=== PATIENT | female | born 1995 | race Caucasian/White ===

== ENCOUNTER 2022-11-12 19:03 | Inpatient (IN) | payer OTHER, SELFPAY ==
[2022-11-12 19:33] VITALS: BMI 45.4
[2022-11-12] MEDS: Lactated Ringers 1,000 ML 50 ML IV (19:45)
[2022-11-12 19:49] VITALS: BP 136/81; TEMP 37.4
[2022-11-12 19:50] VITALS: PULSE 99; O2SAT 97
[2022-11-12] MEDS: 0.9% Normal Saline Single 100 ML IV.SOLN. INTRA-UTER (20:00)
[2022-11-12 20:03] LABS: Absolute Lymphocyte Count 1.69 X10^3/uL (0.83-4.51); Absolute Neutrophil Count 5.1 X10^3/uL (2.0-7.7); Basophil# 0.01 X10^3/uL; Basophil% 0.1 % (0-1); Eosinophil# 0.03 X10^3/uL; Eosinophils% 0.4 % (0-5); Hematocrit 37.1 % (37-47); Hemoglobin 12.3 g/dL (12.0-15.0); Lymphocyte # 1.69 X10^3/ul (0.83-4.51); Lymphocyte % 23.1 % (19-41); Mean Corp Hgb Conc 33.2 g/dL (32-36); Mean Corpuscular Hgb 29.4 pg (27.0-32.0); Mean Corpuscular Volume 88.5 fL (81-99); Monocyte# 0.47 X10^3/uL; Monocyte% 6.4 % (0-10); NRBC Flagged by Analyzer 0 % (0-5); Neutrophil # 5.08 X10^3/uL (2.7-7.7); Neutrophil % 69.6 % (47-70); Platelet Count 266 K/mm3 (150-450); RBC Distribution Width CV 14.2 % (11.6-14.6); RBC Distribution Width SD 45.5 fl (35.1-43.9); Red Blood Count 4.19 M/mm3 (4.2-5.4); White Blood Count 7.3 K/mm3 (4.4-11.0)
--- NOTE | 2022-11-12 20:08 | HP.PCM.OB_ITS ---
HPI - General General Date of Admission: 11/12/22 HPI Narrative NEGRO YAO, is a 27 F who presents for induction of labor due to obesity and GDMA1. with 39w1d Maternal Data Information GENIA Calculator Estimated Delivery Date Method Current WG Current Estimate 11/18/22 Manual 39w 1d PFSH PFSH Medical History (Updated 11/12/22 @ 20:13 by Teri Pedro CNM) Gestational diabetes Polyhydramnios Home Medications 1 tab DAILY 11/12/22 [History Last Taken 11/12/22 08:00 t tab] aspirin 81 mg DAILY 11/12/22 [History Last Taken 11/12/22 08:00 1 tab] Allergy/AdvReac Type Severity Reaction Status Date / Time No Known Allergies Allergy Verified 11/12/22 19:35 Surgical History (Updated 11/12/22 @ 19:35 by Juanita Esteves) [place] teeth removed History Elective abortions Hx Para 0 Spontaneous abortions Hx # Term Pregnancies Ectopic pregnancies Hx # Pregnancies Multiple births # of living children Visit Details OB Flowsheet Initial Weight: Not Recorded Date -?-?-?-?-?-?-?-?-?-?-?-?- EGA Weight BP Urine Prot -?-?-?-?-?-?-?-?-?-?-?-?- Glucose FHR FuHt Pres Dilation -?-?-?-?-?-?-?-?-?-?-?-?- Effaced St Visit Note 11/12/22 -?-?-?-?-?-?-?-?-?-?-?-?- 39w 1d 232 lb 9.403 oz 136/81 -?--?-?-?-?-?-?-?-?-?-?-?- -?-?-?-?-?-?-?-?-?-?-?-?- NST FHR Rate Baby A Baseline: 145 Variability:: Moderate Accelerations:: 15 x 15 Decelerations:: None FHR Category:: Category I Uterine Activity:: None ROS Constitutional Constitutional: Reports systems reviewed and no addt'l complaints, except as documented; Denies headache(s) Eyes Eyes: Denies acute decrease in peripheral vision, blurry vision or change in vision ENT HEENT: Reports systems reviewed and no addt'l complaints, except as documented Cardiovascular Cardiovascular: Denies chest pain or dizziness Respiratory/Chest Respiratory/Chest: Denies cough, dyspnea, dyspnea on exertion, shortness of breath at rest or shortness of breath with exertion Gastrointestinal Gastrointestinal: Denies abdominal pain, diarrhea, nausea or vomiting Genitourinary Genitourinary: Denies abdominal discomfort Musculoskeletal Musculoskeletal: Denies limited range of motion Integumentary Integumentary: Reports systems reviewed and no addt'l complaints, except as documented Neurologic Neurologic: Reports systems reviewed and no addt'l complaints, except as documented Psychiatric Psychiatric: Reports systems reviewed and no addt'l complaints, except as doc umented Endocrine Endocrinology: Reports systems reviewed and no addt'l complaints, except as documented Hematologic/Lymphatic Hematologic/Lymphatic: Reports systems reviewed and no addt'l complaints, except as documented Allergic/Immunologic Allergic/Immunologic: Reports systems reviewed and no addt'l complaints, except as documented Vital Signs Vital Signs Vital Signs: 11/12/22 19:49 11/12/22 19:50 11/12/22 19:50 Temperature Pulse Rate 99 Blood Pressure 136/81 H BP Systolic 136 BP Diastolic 81 Pulse Ox 97 11/12/22 19:49 Temperature 99.3 F H Pulse Rate Blood Pressure BP Systolic BP Diastolic Pulse Ox Weight Weight: 232 lb 9.403 oz Body Mass Index (BMI) 45.4 Physical Exam Const alert and oriented x3 General Appearance: cooperative Orientation / Consciousness: awake, oriented to person, oriented to place and oriented to time Exam Limitations: no limitations HEENT normocephalic Head and Scalp: normal to inspection, normocephalic and atraumatic Face and Sinus: normal facial exam Eyes General Eye: normal appearance of both eyes Neck full ROM Chest Chest: symmetrical chest wall rise Resp normal respiratory effort and normal air movement Auscultation: clear to auscultation bilaterally Cardio regular rate, regular rhythm, S1 normal heart sound, S2 normal heart sound, no murmurs, no rub, no gallops and no clicks GI normal to inspection, nondistended, normoactive bowel sounds and non-tender appearance of the vagina normal Bladder / Kidney Exam: no CVA tenderness Manual OB Exam: estimated gestational size appropriate, presentation cephalic, dilated 1cm, effaced 50, station -3 and other [place] catheter inserted through cervix with stylus without difficulty. Patient tolerated Back/Spine normal ROM Extremity normal to inspection and full ROM Skin no rashes or lesions noted Neuro oriented x3, CN's II-XII intact bilaterally and moves all extremities Sensorium / Orientation: awake, alert and oriented to person Motor Exam: clonus absent Deep Tendon Reflexes: Rt Patellar (L4): 2+ and Lt Patellar (L4): 2+ Labs Labs Labs: Blood Type Pending Antibody Screen Pending Hct 37.1 % (37-47) Hgb 12.3 g/dL (12.0-15.0) Syphilis Total Ab Pending GBS positive RPR negative Rubella immune HBsAG negative HepC negative HIV non reactive B positive GC/CT negative Assessment & Plan (1) Obesity affecting : (2) Positive GBS test: (3) History of anxiety: PLAN: Plan 1) Admit to L&D 2) Routine labs 3) BP mildly elevated, asymptomatic, Preeclampsia labs 4) GDM protocol 5) GBS positive, prophylaxis initiated 6) [place] with PO cytotec per policy for cervical ripening and then pitocin 7) Pain management upon request 8) collaborative physician and notified of patient status
[2022-11-12 20:38] LABS: Syphilis Antibodies Non-reactive
[2022-11-12 20:56] LABS: AST(SGOT) 13 U/L (15-37); Alanine Aminotransfer ALT/SGPT 16 U/L (13-56); EST Glomerular Filtration Rate 128 mL/min (>60); Est Glom Filt Rate - Afr Amer 155 mL/min (>60); Estimated Creatinine Clearance 102.95 ml/min; Uric Acid 4.5 mg/dL (2.6-6.0)
[2022-11-12] MEDS: miSOPROStol 25 MCG TABLET PO (20:56)
[2022-11-12 21:07] LABS: Protein, Urine (Random) 16.2 mg/dL (<11.9); Protein:Creat Ratio 185 mg/g CRE (0-200)
[2022-11-12 21:40] LABS: Bedside Glucose 105 mg/dL (74-106)
[2022-11-12 22:41] LABS: Bedside Glucose 86 mg/dL (74-106)
[2022-11-13] VITALS (57 sets, daily range): BP systolic 106–152; BP diastolic 56–115; PULSE 74–108; TEMP 36.1–37; O2SAT 93–100
[2022-11-13] MEDS: Oxytocin 15 Units/NS 250ml 15 UNITS/250 ML IV.SOLN 2 UNITS IV (01:06)
[2022-11-13] MEDS: Penicillin G 3,000,000 Units 50 ML 100 UNITS IV ×6 (01:11→21:22)
[2022-11-13 02:36] LABS: Bedside Glucose 78 mg/dL (74-106)
[2022-11-13 06:55] LABS: Bedside Glucose 75 mg/dL (74-106)
--- NOTE | 2022-11-13 08:54 | PCM.PN.BLA ---
Progress Note Patient seen at bedside. Ambulating and changing positions. Denies pain. Assessment & Plan Assessment/Plan (1) History of anxiety: (2) Positive GBS test: (3) Gestational diabetes: (4) Obesity affecting : (5) 39 weeks gestation of : PLAN: Plan CE- 4.5/60/-2 head ballotable Pitocin IV at 12 mu/min - continue to increase per policy Epidural if indicated Continue PCN IV for GBS + Dr. Zamora updated on patient and is collaborating physician
[2022-11-13 11:05] LABS: Bedside Glucose 82 mg/dL (74-106)
--- NOTE | 2022-11-13 13:11 | PCM.PN.OB ---
Subjective Subjective Patient comfortable with ctxs. Objective Data Objective Data Vital Signs: Vital Signs Temp Pulse BP Pulse Ox 97.9 F 74 142/85 H 98 11/13/22 10:13 11/13/22 12:33 11/13/22 12:33 11/13/22 10:12 Weight: 232 lb 9.403 oz Body Mass Index (BMI) 45.4 Intake & Output: Intake and Output for Last 24 Hours 11/11/22 11/12/22 11/13/22 23:59 23:59 23:59 Intake Total 105 / 105 693.90 / 693.90 Balance 105 / 105 693.90 / 693.90 Lab / Micro Data Result Diagrams: 11/12/22 19:45 11/12/22 19:45 Labs: Laboratory Results - last 24 hr 11/12/22 19:45: WBC 7.3, RBC 4.19 L, Hgb 12.3, Hct 37.1, MCV 88.5, MCH 29.4, MCHC 33.2, RDW Std Deviation 45.5 H, RDW Coeff of [place] 14.2, Plt Count 266, MPV 11.0, Immature Gran % (Auto) 0.400, Neut % (Auto) 69.6, Lymph % (Auto) 23.1, [place] % (Auto) 6.4, Eos % (Auto) 0.4, Baso % (Auto) 0.1, Absolute Neuts (auto) 5.1, Absolute Lymphs (auto) 1.69, Nucleated RBC % 0 11/12/22 19:45: Blood Type B POSITIVE, Antibody Screen NEGATIVE 11/12/22 19:45: Syphilis Total Ab Non-reactive 11/12/22 19:45: Creatinine 0.60, Estim Creat Clear Calc 102.95, Est GFR (MDRD) Af Amer 155, Est GFR (MDRD) Non-Af 128, Uric Acid 4.5, AST 13 L, ALT 16 11/12/22 20:48: U Random Total Protein 16.2 H, Urine Creatinine 87.80, Protein/Creatinin Ratio 185 11/12/22 21:17: POC Glucose 105 11/12/22 22:19: POC Glucose 86 11/13/22 02:15: POC Glucose 78 11/13/22 06:33: POC Glucose 75 11/13/22 10:46: POC Glucose 82 Physical Exam Narrative: vcx - 4.5/80/-2, AROM clear fluid. IUPC placed. NST FHR Rate Baby A Baseline: 135 Variability:: Moderate Accelerations:: 15 x 15 Decelerations:: None Uterine Activity:: Q 2-3 minutes Assessment & Plan (1) 39 weeks gestation of : (2) Gestational diabetes: (3) Obesity affecting : PLAN: Plan Continue pitocin induction
[2022-11-13 14:56] LABS: Bedside Glucose 85 mg/dL (74-106)
[2022-11-13] MEDS: LACTATED RINGERS 500 ML 999 ML IV ×3 (16:00→23:39)
[2022-11-13] MEDS: Lactated Ringers 1,000 ML 200 ML IV (16:46)
[2022-11-13] MEDS: fentaNYL-bupivacaine (epidural) 100 ML BAG EPIDURAL ×2 (17:05→21:57)
[2022-11-13] MEDS: Oxytocin 15 Units/NS 250ml 15 UNITS/250 ML IV.SOLN 20 UNITS IV (18:44)
[2022-11-13 18:46] LABS: Bedside Glucose 74 mg/dL (74-106)
[2022-11-13 19:45] LABS: Bedside Glucose 75 mg/dL (74-106)
--- NOTE | 2022-11-13 20:36 | PCM.PN.BLA ---
Progress Note Patient seen at bedside. Comfortable with epidural anesthesia. Assessment & Plan Assessment/Plan (1) 39 weeks gestation of : (2) Gestational diabetes: (3) Obesity affecting : (4) Positive GBS test: (5) History of anxiety: PLAN: Plan CE- /-1- caput felt Pitocin IV at 20 mu/min- plan is to decrease dose in half and restart Continue PCN 3 million units IV every 4 hours for GBS + GDM protocol Dr. Zamora notified of exam and involved in plan of care
[2022-11-13 21:01] LABS: Bedside Glucose 67 mg/dL (74-106)
[2022-11-13 21:35] LABS: Bedside Glucose 69 mg/dL (74-106)
[2022-11-13] MEDS: 0.9% Saline Lock 10 ML Syringe IV (21:57)
[2022-11-13 23:25] LABS: Bedside Glucose 93 mg/dL (74-106)
[2022-11-14] VITALS (35 sets, daily range): BP systolic 118–163; BP diastolic 60–95; PULSE 84–132; RESP 16–18; TEMP 36.3–38.1; O2SAT 82–100
[2022-11-14] MEDS: Lactated Ringers 1,000 ML 200 ML IV ×3 (00:23→12:04)
[2022-11-14] MEDS: Penicillin G 3,000,000 Units 50 ML 100 UNITS IV ×2 (01:43→05:57)
[2022-11-14] MEDS: fentaNYL-bupivacaine (epidural) 100 ML BAG EPIDURAL ×2 (03:17→07:36)
[2022-11-14 03:26] LABS: Bedside Glucose 81 mg/dL (74-106)
[2022-11-14 04:11] LABS: Bedside Glucose 81 mg/dL (74-106)
[2022-11-14] MEDS: 0.9% Saline Lock 10 ML Syringe IV (04:59)
[2022-11-14 05:20] LABS: Bedside Glucose 85 mg/dL (74-106)
[2022-11-14 06:35] LABS: Bedside Glucose 84 mg/dL (74-106)
[2022-11-14 07:40] LABS: Bedside Glucose 88 mg/dL (74-106)
--- NOTE | 2022-11-14 09:00 | PCM.PN.OB ---
Subjective Subjective Resting in bed, epidural effective. Objective Data Objective Data Vital Signs: Vital Signs Temp Pulse BP Pulse Ox 98.6 F 90 136/89 H 99 11/14/22 07:47 11/14/22 09:32 11/14/22 09:32 11/14/22 08:27 Weight: 232 lb 9.403 oz Body Mass Index (BMI) 45.4 Intake & Output: Intake and Output for Last 24 Hours 11/12/22 11/13/22 11/14/22 23:59 23:59 23:59 Intake Total 105 / 105 4037.40 / 4037.40 2760.34 / 2760.34 Output Total 900 / 900 Balance 105 / 105 3137.40 / 3137.40 2760.34 / 2760.34 Lab / Micro Data Result Diagrams: 11/15/22 04:33 11/12/22 19:45 Labs: Laboratory Results - last 24 hr 11/13/22 14:27: POC Glucose 85 11/13/22 18:20: POC Glucose 74 11/13/22 19:22: POC Glucose 75 11/13/22 20:37: POC Glucose 67 L 11/13/22 21:10: POC Glucose 69 L 11/13/22 23:01: POC Glucose 93 11/14/22 01:48: POC Glucose 81 11/14/22 03:27: POC Glucose 81 11/14/22 04:48: POC Glucose 85 11/14/22 06:01: POC Glucose 84 11/14/22 07:05: POC Glucose 88 Physical Exam Narrative Anterior lip and then complete dilation NST FHR Rate Baby A Baseline: 145 Variability:: Moderate Accelerations:: 15 x 15 Decelerations:: None FHR Category:: Category I Uterine Activity:: every 3 minute Assessment & Plan (1) Active labor at term: PLAN: Plan 1) Reviewed with patient options at this time. Discussed option for primary section as offered by physician. Discussed at this time, she does not meet criteria for arrest disorder but has the option for elective primary section. Reviewed option for pushing since she is now complete dilation. Discussed pushing for 2hrs and if no decent C/S or 4hrs of pushing if progressing.She would like to proceed with labor and pushing. collaborative physician and notified. 2) Contnue with pitocin per protocol 3) GBS prophylaxis 4) Category 1 FHT
--- NOTE | 2022-11-14 12:33 | PCM.PN.OB ---
Subjective Subjective Pushing on side with peanut ball. Pushing for 3hrs at this time. Objective Data Objective Data Vital Signs: Vital Signs Temp Pulse BP Pulse Ox 98.6 F 90 136/89 H 99 11/14/22 07:47 11/14/22 09:32 11/14/22 09:32 11/14/22 08:27 Weight: 232 lb 9.403 oz Body Mass Index (BMI) 45.4 Intake & Output: Intake and Output for Last 24 Hours 11/12/22 11/13/22 11/14/22 23:59 23:59 23:59 Intake Total 105 / 105 4037.40 / 4037.40 2760.34 / 2760.34 Output Total 900 / 900 Balance 105 / 105 3137.40 / 3137.40 2760.34 / 2760.34 Lab / Micro Data Result Diagrams: 11/15/22 04:33 11/12/22 19:45 Labs: Laboratory Results - last 24 hr 11/13/22 14:27: POC Glucose 85 11/13/22 18:20: POC Glucose 74 11/13/22 19:22: POC Glucose 75 11/13/22 20:37: POC Glucose 67 L 11/13/22 21:10: POC Glucose 69 L 11/13/22 23:01: POC Glucose 93 11/14/22 01:48: POC Glucose 81 11/14/22 03:27: POC Glucose 81 11/14/22 04:48: POC Glucose 85 11/14/22 06:01: POC Glucose 84 11/14/22 07:05: POC Glucose 88 Physical Exam Narrative Pushing efforts strong from patient, no movement of head with pushing efforts. +2 station. Decent is minimal from prior exam at 9am. Pushing began at 930 am. Assessment & Plan (1) Labor and delivery affected by fetopelvic disproportion: PLAN: Plan 1) Discussed with patient failure to descend and limited movement with pushing. Nursing felt patient was making more progress when in hands and knees position with pushing but when placed in supine position no further descent and limited progress with srong pushing efforts. Reviewed with patient no progress in 3 hrs and criteria met for arrest of decent. Option given to push for another hour or proceed with primary low transverse section. She would like to proceed with section. 2) Ancef IVBP once, pharmacy to dose and Azithromycin 500mg IVPB once 3) Vaginal vault prep 4) notified of arrest of descent and will proceed to hospital for section once time given for surgery.
[2022-11-14 13:26] LABS: Bedside Glucose 91 mg/dL (74-106)
[2022-11-14 13:26] LABS: Bedside Glucose 97 mg/dL (74-106)
[2022-11-14] MEDS: Acetaminophen 500 MG Tablet 1000 MG PO ×2 (13:31→20:07)
--- NOTE | 2022-11-14 13:38 | PCM.PN.BLA ---
Progress Note I was called to see the patient for a primary section for arrest of descent. Patient made slow progress to fully dilated. Patient was counseled earlier this morning by certified nurse top edge beveler Teri Pedro regarding proceeding with a primary section versus continued labor and pushing. Patient opted for pushing. Patient had caput but was thought to be making progress earlier. Upon examination by Teri Pedro she was not making descent of the head. Patient was again counseled by Teri Pedro and at this time patient decided to proceed with a primary section. At that time I was called in I counseled the patient on need for elevation from the vagina for delivery through the hysterotomy. We discussed using the pillow versus possible assistance with nursing staff. We discussed the increased risk of hemorrhage infection possible cervical laceration. Patient would like to proceed at this time. Preoperative antibiotics were ordered. OR team was notified. Will have TXA available. Vaginal prep will be performed. Nursery staff and chucking and boring machine operator will be available for delivery.
--- NOTE | 2022-11-14 14:51 | OP.PCM_ITS ---
Maternal Data Information GENIA Calculator Estimated Delivery Date Method Current WG Current Estimate 11/18/22 Manual 39w 3d Details Operative Information Date of Procedure: 11/14/22 Pre-Operative Diagnosis: 39 weeks gestation, GDMA1, Obesity, Arrest of Descent, + GBS Post-Operative Diagnosis: same, live female , CPD Classification: HILARIO Procedure Type: low transverse farmworker #1: Alem Jimenez Type of Anesthesia: Epidural Antibiotic Given: Ancef 3 grams IV x1 and Zithromax 500 mg/5 mL X1 Drain: [place] to straight drain Estimated Blood Loss: 700 Fluids Replaced: 1000 Procedure Start Time: 14:01 Procedure Stop Time: 14:52 Time of Delivery: 14:07 Findings Description of Procedure: After informed consent was obtained the patient was taken the operating room. She was then placed in the supine position. Vaginal exam at this time revealed significant caput +2 station. Very narrow pelvis prominent pubic arch. CPD suspected. Vaginal prep was performed. The pillow was placed with 180 cc of fluid. She was prepped and draped in the normal sterile fashion. Epdiural Anesthesia was found to be adequate. At this time a Pfannenstiel skin incision was made with a knife was carried down to the underlying layer of the fascia. The fascial incision was then extended laterally using curved Montgomery scissor. Rectus muscles were then in the midline bluntly and perito neum was entered bluntly. The opposing traction was placed. Leeroy O retractor placed. At this time the vesicouterine peritoneum was identified. Scalpel was used to make a uterine incision in a low transverse fashion. The uterus was then entered bluntly gentle opposing traction in a cephalad caudad position to extend this incision. Very narrow pelvis in order to fit my hand between the pubic bone into the vagina to bring the head up to the hysterotomy. I did need a little assistance below the pillow to raise up the infant's head. Once the suction was broke the infant's head was brought to the uterine incision was delivered atraumatically. Immediately the cord was clamped and cut was handed to the waiting nursery team. The Placenta was removed from the uterus. The uterus was then removed from the abdominal cavity. The uterus was cleared of all clots and debris using a lap. At this time the uterine incision was reapproximated using #1 Vicryl in a running locked fashion. A second layer for hemostasis was placed using [id number] suture with #1 Vicryl. Hemostasis was appreciated. Posterior cul-de-sac was then cleared of all clots and debris. The Leeroy O was removed. Uterus was placed back in the abdominal cavity. Gutters were cleared of all clots and debris. Uterine incision was reevaluated and noted to be of excellent hemostasis. Henry was placed. Patient had pain during this time anesthesia was able to give her some more medication to keep her comfortable. At this time the peritoneum was grasped with Kellys reapproximated using #2 Vicryl suture in a running fashion. Fascia was then reapproximated using #1 pds in a running fashion. Subcu layer was then irrigated using normal saline. Any oozing was coagulated using the [place]. Henry was then placed. Subcu layer was reapproximated with #2 0 plain gut suture in an interrupted fashion. Subcu layer was closed using 4-0 Monocryl in a subcu fashion. Dry sterile dressing was applied. pillow was removed. Instrument lap needle count correct ?2. Anticipated normal postoperative course. Presentation: Positive for Vertex Amniotic Membrane Rupture Type: Artificial Amniotic Fluid Description: Clear Placental Delivery Description: Expressed Placenta Disposition: [facility] Cord Vessel Description: 3 Vessels Cord Entanglement: None A Gender: Female (1 minute): 7 (5 minute): 9 Delayed Cord Clamping: No Complications Risks of Surgery Discussed w/Patient: Bleeding, Anesthesia Risks, Infection, Need for Future C-Sections and Injury to surrounding structure(s) including bowel and bladder Complications: none. Based on my evaluation of the patient and suspected cephalopelvic disproportion only weighed 2695 g I recommend that the patient have a repeat section at 39 weeks or at the onset of labor with her next delivery.
[2022-11-14] MEDS: Ketorolac 30 MG/ML Syringe IV ×2 (15:47→22:29)
[2022-11-14] MEDS: Oxytocin 15 Units/NS 250ml 15 UNITS/250 ML IV.SOLN 83 UNITS IV (15:54)
--- NOTE | 2022-11-14 15:58 | CPS ---
nursing states they will start.
[2022-11-14] MEDS: Lactated Ringers 1,000 ML 100 ML IV (20:08)
[2022-11-15] VITALS (12 sets, daily range): BP systolic 116–136; BP diastolic 75–88; PULSE 91–109; RESP 16–19; TEMP 36.1–36.9; O2SAT 96–100
[2022-11-15] MEDS: Acetaminophen 500 MG Tablet 1000 MG PO ×4 (02:35→22:25)
[2022-11-15] MEDS: Enoxaparin 40 MG/0.4 ML Syringe SC ×2 (02:36→22:25)
[2022-11-15 03:06] LABS: Bedside Glucose 75 mg/dL (74-106)
[2022-11-15] MEDS: Ketorolac 30 MG/ML Syringe IV ×2 (04:22→10:35)
[2022-11-15 04:40] LABS: Hemoglobin 10.3 g/dL (12.0-15.0); Mean Corp Hgb Conc 33.2 g/dL (32-36); Mean Corpuscular Hgb 29.5 pg (27.0-32.0); Mean Corpuscular Volume 88.8 fL (81-99); Mean Platelet Vol. 10.7 fl (6.2-12.0); Platelet Count 229 K/mm3 (150-450); RBC Distribution Width CV 14.7 % (11.6-14.6); RBC Distribution Width SD 47.8 fl (35.1-43.9); Red Blood Count 3.49 M/mm3 (4.2-5.4)
--- NOTE | 2022-11-15 08:12 | PCM.PN.OB ---
Subjective Subjective Patient seen at bedside. Resting but feeling tired. Has ambulated and voided. Pain is controlled at this time. Denies headache, vision changes, dizziness, CP or SOB. with support. Anticipate discharge home tomorrow. Objective Data Objective Data Vital Signs: Vital Signs Temp Pulse Resp BP Pulse Ox O2 Del Method O2 Flow Rate 98.5 F 96 18 128/80 H 98 Room Air 2 11/15/22 03:28 11/15/22 06:11 11/15/22 06:11 11/15/22 03:28 11/15/22 06:11 11/15/22 06:11 11/14/22 15:20 Oxygen Flow Rate (L/min) 2 Oxygen Delivery Method Room Air Weight: 232 lb 9.403 oz Body Mass Index (BMI) 45.4 Intake & Output: Intake and Output for Last 24 Hours 11/13/22 11/14/22 11/15/22 23:59 23:59 23:59 Intake Total 4037.40 / 4037.40 4352.50 / 4352.50 636.67 / 636.67 Output Total 900 / 900 1600 / 1600 700 / 700 Balance 3137.40 / 3137.40 2752.50 / 2752.50 -63.33 / -63.33 Lab / Micro Data Result Diagrams: 11/15/22 04:33 11/12/22 19:45 Labs: Laboratory Results - last 24 hr 11/14/22 10:14: POC Glucose 97 11/14/22 13:02: POC Glucose 91 11/15/22 02:44: POC Glucose 75 11/15/22 04:33: WBC 11.0, RBC 3.49 L, Hgb 10.3 L, Hct 31.0 L, MCV 88.8, MCH 29.5, MCHC 33.2, RDW Std Deviation 47.8 H, RDW Coeff of [place] 14.7 H, Plt Count 229, MPV 10.7 ROS Eyes Eyes: Denies blurry vision, change in vision or spots in vision ENT HEENT: Denies dizziness or headache(s) Cardiovascular Cardiovascular: Denies abdominal pain, chest pain or dyspnea Respiratory/Chest Respiratory/Chest: Denies cough, dyspnea, shortness of breath at rest or shortness of breath with exertion Gastrointestinal Gastrointestinal: Denies abdominal pain, diarrhea or vomiting Genitourinary Genitourinary: Denies change in urinary stream, difficulty urinating or dysuria Musculoskeletal Musculoskeletal: Reports none Integumentary Integumentary: Denies rash Neurologic Neurologic: Denies dizziness, headache(s), memory loss or weakness Physical Exam Narrative Dressing is dry and intact Const alert and no apparent distress General Appearance: cooperative and comfortable Exam Limitations: no limitations HEENT normocephalic Eyes General Eye: normal appearance of both eyes Neck full ROM General: normal visual inspection Chest Chest: symmetrical chest wall rise Resp normal respiratory effort and normal air movement Effort and Inspection: symmetric chest movement Auscultation: clear to auscultation bilaterally Cardio regular rate and regular rhythm GI normal to inspection, nondistended, normoactive bowel sounds Back/Spine normal ROM Extremity full ROM and no calf tenderness General Extremity: normal exam except as noted Skin no rashes or lesions noted Neuro CN's II-XII intact bilaterally Psych mental status grossly normal Assessment & Plan (1) Status post primary low transverse section: (2) Care and examination of lactating mother: PLAN: Plan POD 1 Primary C/S Pain control Routine care Increase ambulation support Anticipate discharge home tomorrow
[2022-11-15] MEDS: Senna/Docusate Sodium 1 Tablet PO (10:35)
[2022-11-15] MEDS: Ibuprofen 600 MG Tablet PO ×2 (16:10→22:25)
[2022-11-16 01:07] VITALS: BP 136/86; PULSE 110; RESP 15; TEMP 37.1; O2SAT 97
[2022-11-16] MEDS: oxyCODONE 5 MG Tablet PO (01:12)
[2022-11-16] MEDS: Ibuprofen 600 MG Tablet PO ×2 (03:59→10:12)
[2022-11-16] MEDS: Acetaminophen 500 MG Tablet 1000 MG PO ×2 (04:00→10:12)
--- NOTE | 2022-11-16 07:00 | PCM.DC.SUM ---
Providers Date of Admission: 11/12/22 Primary Care Physician: No Primary Care Phys Reason For Visit: PRIMARY Diagnosis Discharge Diagnosis (1) Status post primary low transverse section: Status: Acute Code(s): Z98.891 - History of uterine scar from previous surgery (2) Care and examination of lactating mother: Status: Acute Code(s): Z39.1 - Encounter for care and examination of lactating mother Medications at Discharge Home Medications 1 tab DAILY 11/12/22 acetaminophen 500 mg tablet 1,000 mg PO Q6H #0 tabs 11/16/22 ibuprofen 600 mg tablet 600 mg PO Q6H #0 tabs 11/16/22 oxycodone 5 mg tablet 5 - 10 mg PO Q4H PRN PRN Pain Score 4-10 3 days #10 tabs 11/16/22 Hospital Course Operations section Summary of Care Provided Hospital Course: Patient had primary section. Hospital course was uneventful. Physical Exam Narrative Patient seen at bedside. Ambulating and voiding. Passing flatus. Lochia minimal. Desires discharge home. Const alert and no apparent distress General Appearance: cooperative and comfortable Exam Limitations: no limitations HEENT normocephalic Eyes General Eye: normal appearance of both eyes Neck full ROM General: normal visual inspection Chest Chest: symmetrical chest wall rise Resp normal respiratory effort and normal air movement Effort and Inspection: symmetric chest movement Auscultation: clear to auscultation bilaterally Cardio regular rate and regular rhythm GI normal to inspection, nondistended, normoactive bowel sounds Back/Spine normal ROM Extremity full ROM and no calf tenderness General Extremity: normal exam except as noted Skin no rashes or lesions noted Neuro CN's II-XII intact bilaterally Psych mental status grossly normal Weight / BMI Weight Weight: 232 lb 9.403 oz Body Mass Index (BMI) 45.4 ABG / Lab / Microbiology Data Result Diagrams: 11/15/22 04:33 11/12/22 19:45 D/C Instructions Discharge Diet: No restrictions Discharge Activity: May Drive (2 weeks) and May Shower May resume sexual activity in: 6-8 weeks Weight Bearing Status: Weight bearing as tolerated Call your doctor if your incision/area has: Continuous Slow Oozing, Sudden Increased Bleeding, Increased Pain/ Swelling, Increased Redness, Foul Smelling Discharge and Swelling at the incision site Call your doctor if you observe: Fever of 101 or Higher, Numbness or Tingling, Using more than 1 pad per hour, Shortness of breath, Dizziness, Swelling in the ankles, Chest pain, Calf discomfort and Uncontrolled pain Suture Line Care: Avoid Pulling/Pushing Please Follow Up With: Gillian Madrid CNM When: 1 week for incision check Meaningful Use Info Meaningful Use Diagnoses (Choose all that apply): None applicable Discharge Plan Admission Admit Date/Time: 11/12/22 19:03 Primary Reason for Your Visit: Labor and Delivery Attending Provider: Lisa Hardin Primary Care Provider: Care Physician,No Primary Discharge Orders/Prescriptions Prescriptions: New acetaminophen 500 mg Tablet 1,000 mg PO Q6H Qty: 0 0RF ibuprofen 600 mg Tablet 600 mg PO Q6H Qty: 0 0RF oxycodone 5 mg Tablet 5 - 10 mg PO Q4H PRN PRN (Reason: Pain Score 4-10) 3 Days Qty: 10 0RF Continued 1 tab tablet 1 tab DAILY Discontinued aspirin 1 tab tablet 81 mg DAILY Referrals / Follow Up: Care Physician,No Primary [Primary Care Provider] - Disposition Disposition (needs filled in before D/C Order can be placed): Home, Self Care
[2022-11-16 08:00] VITALS: BP 138/87; PULSE 102; RESP 17; TEMP 36.3; O2SAT 97
[2022-11-16] MEDS: Enoxaparin 40 MG/0.4 ML Syringe SC (10:12)
[2022-11-16] MEDS: Senna/Docusate Sodium 1 Tablet PO (10:12)
[2022-11-16 12:44] VITALS: BP 140/87; PULSE 98; RESP 18; TEMP 36.4; O2SAT 96
== END 2022-11-16 13:35 | disposition home or self-care (01) | DRG 788 ==
PROVIDERS: Advanced Practice Midwife; Admitting Provider Obstetrics & Gynecology; Visit Provider Obstetrics & Gynecology
DX: O24.419 Gestational diabetes mellitus in pregnancy, unspecified control (principal); E66.9 Obesity, unspecified; O33.9 Maternal care for disproportion, unspecified; O99.214 Obesity complicating childbirth; O62.1 Secondary uterine inertia; O26.893 Other specified pregnancy related conditions, third trimester; R03.0 Elevated blood-pressure reading, without diagnosis of hypertension; O99.824 Streptococcus B carrier state complicating childbirth; Z37.0 Single live birth; Z3A.39 39 weeks gestation of pregnancy
CPT/HCPCS: 59025; 59050; 82565; 82570; 82962; 84156; 84450; 84460; 84550; 85025; 85027; 86780; 86850; 86900; 86901; 99221; J7120; A4216; G0378